=== PATIENT | female | born 1995 | race Two or more races ===

== ENCOUNTER 2020-11-25 01:30 | Emergency (ER) | payer SELFPAY ==
[~2020-11-25] VITALS: Ht 149.9 cm; Wt 47.6 kg
[2020-11-25] MEDS ORDERED: ALBUTEROL SULF 2.5 MG/0.5ML(0.5%) NEB SOLN NEB ONE (02:00)
[2020-11-25] MEDS ORDERED: IPRATROPIUM BROM 0.5 MG/2.5ML INH SOL NEB ONE (02:00)
[2020-11-25] MEDS ORDERED: PROMETHAZINE W/CODEINE 5 ML ORAL SYRUP PO ONE (04:00)
[2020-11-25] MEDS ORDERED: methylPREDNISolone SOD SUCC 125 MG/2 ML VL IM ONE (04:00)
[2020-11-25 04:18] VITALS: BP 143/93
== END 2020-11-25 04:51 | disposition home or self-care (01) ==
LOC: ER 01:30
DX: J45.909 Unspecified asthma, uncomplicated (principal); R53.1 Weakness; Z20.822 Contact with and (suspected) exposure to COVID-19
CPT/HCPCS: 36415; 71045; 87426; 94640; 96372; 99284; J2930; J7644